=== PATIENT | male | born 1980 | race Hispanic/Latino ===

== ENCOUNTER 2017-10-14 16:12 | Emergency (ER) | payer SELFPAY ==
[~2017-10-14] VITALS: Ht 167.6 cm; Wt 65.8 kg
[2017-10-14] MEDS ORDERED: LIDOCAINE HCL 1% LOCAL INJ 20 ML VIAL INJ ONE (16:30)
--- NOTE | 2017-10-14 17:04 | Diagnostic Imaging Report ---
EXAMINATION: FOOT LEFT COMPLETE 10/14/2017 4:30 PM COMPARISON: None INDICATION: Puncture wound DISCUSSION: 3 views of the left foot (AP, lateral, and oblique) No fracture or dislocation. Joint spaces are maintained. There is an os peroneum Soft tissues are unremarkable An irregular radiodensity projected in the soft tissues of the great toe is seen only on one view and likely represents radiographic artifact. IMPRESSION: As above. No radiopaque foreign body. Lake Mcfarland MD Signed by: Dr. Lake Mcfarland M.D. on 10/14/2017 5:00 PM
[2017-10-14 17:54] VITALS: BP 122/86
== END 2017-10-14 17:45 | disposition home or self-care (01) ==
LOC: ER 16:12
DX: S91.332A Puncture wound without foreign body, left foot, initial encounter (principal); W45.0XXA Nail entering through skin, initial encounter; Y99.0 Civilian activity done for income or pay
CPT/HCPCS: 73630; 99283; J2001